=== PATIENT | male | born 1980 | race Two or more races ===

== ENCOUNTER 2018-06-19 08:56 | Emergency (ER) | payer OTHER ==
[2018-06-19] MEDS ORDERED: DIPH/PERTUSS(ACELL)/TETANUS VAC/PF 0.5 ML SYR (>=10YO) IM ONE (09:22)
[2018-06-19] MEDS ORDERED: MORPHINE SULFATE 10 MG/ML INJ IM ONE (09:22)
[2018-06-19] MEDS ORDERED: CEFAZOLIN 1 GM/D5W RTU 1 GM/50 ML RTUPB IV ONE (09:25)
--- NOTE | 2018-06-19 09:25 | ER Document Report ---
ED Medical Screen (RME) - General Chief Complaint: Laceration Stated Complaint: LEFT FINGER INJURY Time Seen by Provider: 06/19/18 09:17 Notes: Patient is a 37-year-old male that presents to the emergency department for chief complaint of left hand laceration. Patient is [place]ian-speaking with a friend translating. He lacerated his left hand with a skill saw just prior to arrival. Tetanus vaccine is not up-to-date. Complaining of sharp pain in his left hand and numbness in his left distal fifth digit ROS: GENERAL: Denies fever of chills CV: Denies chest pain PHYSICAL EXAMINATION: GENERAL: Well-appearing, well-nourished and in no acute distress. HEAD: Atraumatic, normocephalic. EYES: Pupils equal round extraocular movements intact, conjunctiva are normal. ENT: Nares patent NECK: Normal range of motion LUNGS: No respiratory distress Musculoskeletal: Normal range of motion Skin: Laceration to palmar left third fourth and fifth digit with exposed flexor tendons NEUROLOGICAL: Normal speech, normal gait. PSYCH: Normal mood, normal affect. MDM: Patient seen and examined for rapid initial assessment. Vital signs reviewed. A comprehensive ED assessment and evaluation of the patient, analysis of test results and completion of the medical decision making process will be conducted by additional ED providers. TRAVEL OUTSIDE OF THE [place] IN LAST 30 DAYS: No - Related Data Allergies/Adverse Reactions: No Known Allergies Allergy (Unverified 06/19/18 08:59) Physical Exam - Vital signs Vitals: Temp Pulse Resp BP Pulse Ox 98.4 F 75 16 149/83 H 98 06/19/18 09:00 06/19/18 09:00 06/19/18 09:00 06/19/18 09:00 06/19/18 09:00 Course - Vital Signs Vital signs: Temp Pulse Resp BP Pulse Ox 98.4 F 75 16 149/83 H 98 06/19/18 09:00 06/19/18 09:00 06/19/18 09:00 06/19/18 09:00 06/19/18 09:00
[2018-06-19] MEDS ORDERED: MORPHINE SULFATE 10 MG/ML INJ IV ONE (09:26)
--- NOTE | 2018-06-19 10:16 | RADIOLOGY REPORT (SQ) ---
EXAM DESCRIPTION: HAND LEFT 3 VIEWS COMPLETED DATE/TIME: 06/19/2018 9:59 am REASON FOR STUDY: trauma COMPARISON: None. EXAM PARAMETERS: NUMBER OF VIEWS: Three views. TECHNIQUE: AP, lateral and oblique radiographic images acquired of the left hand. LIMITATIONS: None. FINDINGS: MINERALIZATION: Normal. BONES: There is a comminuted fracture of the distal left 5th phalanx underlying a soft tissue lacerat ion. There is no fracture of the middle left 4th phalanx underlying a soft tissue laceration and sup erficial radiopaque foreign debris. JOINTS: No effusions. SOFT TISSUES: No soft tissue swelling. No foreign body. OTHER: No other significant finding. IMPRESSION: There is a comminuted fracture of the distal left 5th phalanx underlying a soft tissue l aceration. There is no fracture of the middle left 4th phalanx underlying a soft tissue laceration a nd superficial radiopaque foreign debris. TECHNICAL DOCUMENTATION: JOB ID: [id number] [employer]- All Rights Reserved Reading location - IP/workstation name: [email or web address]
[2018-06-19] MEDS ORDERED: HYDROMORPHONE HCL INJ/PF 2 MG/ML AMPULE IV ONE (10:20)
[2018-06-19] MEDS ORDERED: LIDOCAINE 2% INJ (20 MG/ML) 20 ML MDV INJ ONE ×2 (10:21→11:03)
[2018-06-19] MEDS ORDERED: LIDOCAINE 1.5% INJ-MPF (15 MG/ML) 20 ML AMPUL INJ ONE (10:26)
[2018-06-19] MEDS ORDERED: LIDOCAINE 2% INJ (20 MG/ML) 20 ML MDV ONE (11:04)
[2018-06-19 14:15] VITALS: BP 143/88
--- NOTE | 2018-06-19 14:18 | ER Document Report ---
ED Hand/Wrist Injury - General Chief Complaint: Laceration Stated Complaint: LEFT FINGER INJURY Time Seen by Provider: 06/19/18 09:17 Mode of Arrival: Ambulatory Information source: Patient, Friend Notes: Patient is a 37-year-old male comes in the emergency room with his friend complaining of a laceration to the palm of his left hand. 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 Patient speaks only Greek and his friend that came with him is doing the interpretation and speaks very good Serbian and Greek. Patient is in severe pain and the friend was actually with him when the incident occurred. TRAVEL OUTSIDE OF THE [place] IN LAST 30 DAYS: No - HPI Injury to: Hand, Middle finger, Ring finger, Small finger Onset: Just prior to arrival Where: Work Timing: Constant Quality of pain: Fullness, Sharp, Stabbing, Throbbing Severity: Severe Pain Level: 5 Context: Laceration - Related Data Allergies/Adverse Reactions: No Known Allergies Allergy (Unverified 06/19/18 08:59) Past Medical History - General Information source: Patient - Social History Smoking Status: Never Smoker Cigarette use (# per day): No Chew tobacco use (# tins/day): No Smoking Education Provided: No Frequency of alcohol use: Rare Drug Abuse: None Occupation: Construction Lives with: Family Family History: Reviewed & Not Pertinent Patient has suicidal ideation: No Patient has homicidal ideation: No Renal/ Medical History: Denies: Hx Peritoneal Dialysis Review of Systems - Review of Systems Constitutional: No symptoms reported EENT: No symptoms reported Cardiovascular: No symptoms reported Respiratory: No symptoms reported Gastrointestinal: No symptoms reported Genitourinary: No symptoms reported Male Genitourinary: No symptoms reported Musculoskeletal: Joint pain, Joint swelling Skin: No symptoms reported Hematologic/Lymphatic: No symptoms reported Neurological/Psychological: Other - Lacerations to the last 3 digits on the left hand Physical Exam - Vital signs Vitals: Temp Pulse Resp BP Pulse Ox 98.4 F 75 16 149/83 H 98 06/19/18 09:00 06/19/18 09:00 06/19/18 09:00 06/19/18 09:00 06/19/18 09:00 Interpretation: Hypertensive - Notes Notes: PHYSICAL EXAMINATION: GENERAL: Patient is a well-nourished well-developed 37-year-old male who is in severe pain on physical examination. Patient is uncomfortable he is holding his hand to his body and there is blood everywhere. HEAD: Atraumatic, normocephalic. EYES: Pupils equal round and reactive to light, extraocular movements intact, sclera anicteric, conjunctiva are normal. LUNGS: Breath sounds clear to auscultation bilaterally and equal. No wheezes rales or rhonchi. HEART: Regular rate and rhythm without murmurs Musculoskeletal: Examination of area of concern is patient's left hand. Examination shows patient is bleeding heavily at the time of the physical examination. Using a tourniquet at the forearm we were able to stop the bleeding enough in order to take a look at the injury. Patient has been cut in the joint space of the distal phalanx of the left fifth digit crossed to the middle of the middle phalanx of the fourth and third fingers. Examination of the third digit shows a visualization of the flexor tendon which appears to be only a partial tear patient has extension and flexion with that finger completely. Although it does not look as if the full tendon is attached. He has good vascular flow distally and proximally at this time. The laceration is going straight across the middle phalanx and it is almost the width are slightly wider than of the blade of the saw. It is a line cleaner cut than the others. The next finger to examine is the ring finger it too is going to the middle phalanx also appears to be the width of the saw no visualization of a tendon here patient has full flexion and extension of the finger as well he has good cap refill in the nail of the finger and good cap refill below. He has good sensation distally. The area of the worst damage is to the left little finger discussed through the distal phalanx starting at the base of the nail and around to the base of the nail. This is more emaciated and "shoot up.". There is multiple different flaps on this finger I cannot see any tendon because of the bleeding is extensive even with the tourniquet in place. Patient is able to put force against my finger with the distal tip of his little finger as well as force against the posterior portion of the nail side of the finger so it appears that his tendons are still intact. NEUROLOGICAL: Cranial nerves grossly intact. Normal speech, normal gait. Normal sensory, motor exams PSYCH: Normal mood, normal affect. SKIN: Warm, Dry, normal turgor, no rashes or lesions noted. Course - Re-evaluation Re-evalutation: 06/19/18 14:[address] Kandi Sanders and informed him of the patient for which he pulled patient's x-rays up I informed him that currently the little finger has flow to the distal tip of that he has good tendon apparent tendon function with resistance in both directions and that the x-ray shows that there is a total separation of the distal phalanx\\bone\\of that finger. He is instructed me to go in and do an extensive cleaning of the area of the wounds best I can. And then to loosely approximate as much as I can. He is then to contact the office Sunday and have an office visit with Dr. Barillas Sunday in the office. Because there is not enough room on the procedural sheet to document what I am going to have to do I will do a freelance procedure note here. Patient's hand was unwrapped and placed into a sterile top of normal saline and Betadine. He was up there for approximately 40 minutes with the tech going in and occasionally changing water and things in his hand. After that time was up and went in with the tach and we used 2% lidocaine without epi and we did each of the wounds separately. The first blockade it was a digital block at the base of the little finger where I entered at the base of the finger moving right and left until I had achieved a digital block on that finger to where there was no feeling distally. I then instilled a few small drops of lidocaine via needle into the local wound. I then changed to the needles and syringe that I went to the next wound on the fourth digit I went into the opening of the wound and instilled locally on this one. Until I achieved a complete circumferential anesthesia of the wound around the finger. I then proceeded to go to the third digit again I infiltrated locally into the wound itself both superior portion and inferior portion. This is the finger that has the exposed tendon prior to anesthesia again of this finger I had him flex and extend it and he has total flexion and extension although there appears to be a portion of the tendon that is frayed or cut. I did achieve local infiltration with lidocaine and got good anesthesia circumferentially. Once all fingers were anesthetized I then proceeded to go back to the fifth digit which was the most complicated. Patient had again good flexion extension and of the distal tip when pressure was applied. On this finger I was able to pull it back together with 5 sutures which are little bit more than I had anticipated but in order to get the blood flow to stop I had a piece it together. Once completed I moved on to the fourth digit this took 3 simple interrupted sutures and the third digit again to 3. These also were interrupted sutures. The length of each of these lacerations goes is followed the little finger measure 8 cm, the fourth and the third each measured 4 cm. Once completion of the process we cleaned him up extensively I did most of these repair with the aid of the PCT when I came back and reexamined the hand it looked really good and normal I was able to go to the fifth digit and compress it cap refill was less than 2 seconds and had blood flow to the nail into the pad below it as well patient still did not have any sensation secondary to the block. The other 2 fingers were almost functional with the 4 stitches in each 1 of them. We placed him in a modified cockup splint with extension to the tips of the fingers and protected in the little finger. I rechecked it again after application by the PCT and again it was found to be in good position with good cap refill in the nailbeds of all the fingers of the left hand. 06/20/18 08:52 - Vital Signs Vital signs: Temp Pulse Resp BP Pulse Ox 98.7 F 74 16 143/88 H 98 06/19/18 14:14 06/19/18 14:14 06/19/18 14:14 06/19/18 14:14 06/19/18 14:14 Procedures - Laceration/Wound Repair Left Finger 5th digit Wound length (cm): 11 Wound's Depth, Shape: Into muscle, Irregular Laceration pre-procedure: Sterile PPE donned, Betadine prep applied, Sterile drapes applied Anesthetic type: 2% Lidocaine Volume Anesthetic (mLs): 10 Wound explored: No foreign body removed, Contaminated Irrigated w/ Saline (mLs): 3,000 Wound Debrided: Moderate Wound Repaired With: Sutures Suture Size/Type: 3:0, Prolene Number of Sutures: 16 Layer Closure?: No Post-procedure wound care: Sterile dressing applied, Splint applied, Sling applied Post-procedure NV exam normal: Yes Complications: No Notes: 06/20/18 09:01 See full procedural note in section "course". Discharge - Discharge Clinical Impression: Laceration of flexor muscle, fascia and tendon of left middle finger at forearm level, initial encounter Finger laceration Qualifiers: Encounter type: initial encounter Finger: little finger Damage to nail status: with damage Foreign body presence: unspecified Laterality: left Qualified Code(s ): S61.317A - Laceration without foreign body of left little finger with damage to nail, initial encounter Open fracture of phalanx of left little finger Qualifiers: Encounter type: initial encounter Phalanx: distal Fracture alignment: displaced Qualified Code(s): S62.637B - Displaced fracture of distal phalanx of left little finger, initial encounter for open fracture Condition: Stable Disposition: HOME, SELF-CARE Instructions: Laceration Care ([facility]), Oral Narcotic Medication ([facility]) Additional Instructions: It is important to date you maintain and keep that splint and bandaging on your hands clean and dry. Leave the dressings on there today for the next 48 hours. After 48 hours you may remove the splint and take off the dressings and rinsed the hand with warm soapy water and let it air dry then reapply some antibiotic cream or ointment and the dressings reapplied the splint. Do this every day at least once until you see the orthopedic surgeon. You do not want to go around moving the fingers a lot. It is important that Sunday morning you contact Dr. Barillas's office on the numbers that I have given you and see when they want to see you in his office on Sunday. Take the pain medication as directed stay home and do not do anything to hurt that hand over the weekend until you see the orthopedic surgeon. Check your blood flow as we have instructed you by pinching the tip of your fingers if it takes more than 3 seconds for it to turn red again loosen up the bandages and repeat the pinch. If for any reason you have any concerns that is not appearing like it is healing correctly return to ER for recheck over the weekend. Prescriptions: Cephalexin Monohydrate [Keflex 500 mg Capsule] 500 mg PO Q6H 7 Days #28 capsule Clindamycin HCl 300 mg PO Q6 #28 capsule Oxycodone HCl/Acetaminophen [Percocet 5-325 mg Tablet] 1 tab PO Q4H PRN #20 tablet PRN Reason: Promethazine HCl [Phenergan 25 mg Tablet] 1 - 2 tab PO Q6H PRN #15 tablet PRN Reason: Forms: Elevated Blood Pressure Referrals: SLY BARILLAS DO [ACTIVE STAFF] - Follow up as needed
== END 2018-06-19 15:59 | disposition home or self-care (01) ==
LOC: ER 08:56
DX: S62.637B Displaced fracture of distal phalanx of left little finger, initial encounter for open fracture (principal); S56.124A Laceration of flexor muscle, fascia and tendon of left middle finger at forearm level, initial encounter; W29.8XXA Contact with other powered hand tools and household machinery, initial encounter; Y93.89 Activity, other specified; Y99.0 Civilian activity done for income or pay
CPT/HCPCS: 99283; 96372; 90471; 96375; 96365; 73130; 90715; 12005; J3490; J0690; J2270; J1170